=== PATIENT | female | born 1990 | race Caucasian/White ===

== ENCOUNTER 2023-06-15 23:14 | Emergency (ER) | payer OTHER, SELFPAY ==
[2023-06-15 23:18] VITALS: BP 145/100; PULSE 99; RESP 18; TEMP 37; O2SAT 100
[2023-06-15 23:37] LABS: Bilirubin Urine Negative (Negative); Blood Urine 3+ (Negative); Color Urine Light Yellow (Yellow); Glucose Urine UA Negative (Negative); Ketones Urine Negative (Negative); Leukocyte Esterase Ur 1+ LEU/UL (Negative); Nitrate Urine Positive (Negative); Protein Urine 1+ (Negative); Specific Grav Ur >= 1.030 (1.010-1.020); Urobilinogen Urine 0.2 mg/dL (0.2-1.0); pH Urine 5.5 (5.0-8.0)
[2023-06-15 23:43] LABS: Add Urine Microscopic? YES; Appearance Urine Cloudy (Clear); RBC Urine >100 /hpf (0-2); WBC Clumps Urine Present /hpf; WBC Urine 16-20 /hpf (0-3)
[2023-06-15 23:44] LABS: Amorphous Sediment Urine Heavy; Bacteria Urine 4+ /hpf; Mucus Urine Heavy /lpf; Squamous Epithelial Cell Urine Many /hpf (Few)
[2023-06-15 23:45] VITALS: BP 135/88; PULSE 87; RESP 18; O2SAT 98
[2023-06-15 23:56] LABS: Pregnancy On Board Control Positive; Urine Pregnancy Test Negative
--- NOTE | 2023-06-16 00:39 | ED.FEMALEGU ---
HPI - Female Genitourinary General Chief complaint: Urogenital-Female Stated complaint: UTI Symptoms Source: patient and family Mode of arrival: ambulatory Limitations: no limitations History of Present Illness HPI Narrative: patient is a 32-year-old female here with urinary symptoms. They are traveling from out of town. Patient is having burning with urination. She had a yeast infection that was treated a week ago but starting to come back again at this time. Tomorrow is Labor Day and pharmacies will be closed probably And she is traveling. MD elicited complaint: dysuria, UTI and vaginal discharge ( recently a white thick discharge resolved with Monistat) Onset (ago): week(s) (1) Location of symptoms: urethra Severity: moderate Female Urogenital Radiation: Non-Radiating Severity scale (1-10): 4 Quality of pain: sharp and burning Consistency: intermittent Vaginal discharge: white Urinary symptoms: Dysuria, Urgency, Frequency and Hematuria Exacerbating factors: none Relieving factors: none Associated symptoms: denies other symptoms Treatment prior to arrival: none Sexual activity: Yes ( patient is ) Patient : No Related Data Home Medications Medication Instructions Recorded Confirmed losartan-hydrochlorothiazide 50 mg PO DAILY 06/16/23 06/16/23 Allergies Allergy/AdvReac Type Severity Reaction Status Date / Time No Known Allergies Allergy Verified 06/16/23 00:02 Review of Systems Review of Systems: All systems reviewed & are unremarkable except as noted in HPI and below Constitutional: Constitutional: Reports no additional constitutional complaints Eyes: Eyes: Reports no additional eye complaints ENT: Reports system reviewed and no additional complaints, except as documented Cardiovascular: Cardiovascular: Reports no additional cardiovascular complaints Respiratory: Respiratory: Reports no additional respiratory complaints Gastrointestinal: Gastrointestinal: Reports no additional gastrointestinal complaints Genitourinary: Genitourinary: Reports no additional female genitourinary complaints Musculoskeletal: Musculoskeletal: Reports no additional musculoskeletal complaints Integumentary/Breasts: Skin/Breast: Reports system reviewed and no additional complaints, except as docu Neurologic: Reports system reviewed and no additional complaints, except as documented Psychiatric: Psychiatric: Reports no additional psychiatric complaints Endocrine: Endocrine: Reports no additional endocrine complaints Hematologic/Lymphatic: Hematologic/Lymphatic: Reports no additional hematologic/lymphatic complaints Allergic/Immunologic: Allergic/Immunologic: Reports no additional allergic/immunologic complaints Exam Const: General: healthy appearing Nutritional Appearance: well nourished Orientation/consciousness: patient oriented x3 Chest: Chest palpation & inspection: normal inspection of the chest Resp: Effort & Inspection: normal respiratory effort Auscultation: clear to auscultation bilaterally Cardio: Rate: regular rate Rhythm: regular rhythm Heart sounds: no murmurs GI: Inspection: non-distended GI Palp: Yes Soft to palpation, No Tenderness to palpation present (GI), No Guarding due to palpation present (GI) and No Rigid due to palpation Auscultation: normal bowel sounds : General: No bladder normal to palpation ( tender to palpation suprapubic region), No CVA tenderness and Yes no CVA tenderness Skin: General skin exam: normal color Rashes: no rashes Wounds: no wounds Neuro: General: patient oriented x3, moves all extremities and no meningeal signs Extrem: General: normal to inspection, no clubbing, cyanosis or edema and no pedal edema Psych: Appearance: grossly normal Mental Status: mental status grossly normal Affect: normal affect Course Vital Signs Vital signs: Vital Signs Temperature 37.0 C 06/15/23 23:18 Pulse Rate 99 06/15/23 23:18 Respiratory Rate
[2023-06-16] MEDS: cefTRIAXone 1 GM, LIDOCAINE HCL 1% LOCAL INJ 2.1 ML IM (00:49)
[2023-06-16 01:00] VITALS: BP 132/84; PULSE 78; RESP 18; TEMP 36.6; O2SAT 99
[2023-06-16] MEDS: PHENAZOPYRIDINE HCL 100 MG TABLET 200 MG PO (01:00)
--- NOTE | 2023-06-17 16:13 | PC.NURSE ---
PRELIMINARY URINE CULTURE RESULTS: ISOLATE 1: GREATER THAN 100,000 CFU/ML OF ESCHERICHIA COLI, SUSCEPTIBILITY TO FOLLOW. PER DR WORLEY, TO AWAIT C & S.
--- NOTE | 2023-06-18 13:34 | PC.NURSE ---
erp, dr engel, reviewed final urine culture report. erp called pt and spoke with her. erp called in new abx, pt is taking this new abx now.
== END 2023-06-16 01:04 | disposition home or self-care (01) ==
PROVIDERS: Emergency Provider Emergency Medicine
DX: N30.01 Acute cystitis with hematuria (principal)
CPT/HCPCS: 81001; 81025; 87077; 87086; 87088; 87186; 96372; 99283; A9270; J0696